=== PATIENT | female | born 2005 | race Caucasian/White ===

== ENCOUNTER 2023-11-21 20:13 | Emergency (ER) | payer BC, SELFPAY ==
--- NOTE | ~2023-11-21 | CT_ITS ---
EXAMINATION: CT abdomen pelvis w con DATE: 11/21/2023 21:34 INDICATION: bloody diarrhea TECHNIQUE: Computed tomography (CT) of the abdomen and pelvis was performed with 100 mL Omnipaque-350 intravenous contrast. Automated exposure control and iterative reconstruction technique were employe d. The dose-length product was 266.02 mGy-cm. COMPARISON: None. FINDINGS: Lower thorax: Unremarkable Liver: Normal. Biliary/Gallbladder: Gallbladder is normal. No bile duct dilation. Pancreas: No mass or duct dilation. Spleen: Normal. Adrenals:No mass. Kidneys: No suspicious mass, obstructing stone, or hydronephrosis. GI tract: No small or large bowel dilation. Mild colonic wall edema involving the transverse, descend ing, and sigmoid colon. Normal appendix. Mesentery/Peritoneum: No ascites, mass, or free air. Retroperitoneum: No mass. Pelvis: Pelvic organs are within normal limits. Soft Tissues: Soft tissues and body wall unremarkable. Bones: No acute osseous finding. IMPRESSION: Mild transverse, descending, and sigmoid wall edema as can be seen with infectious or inflammatory co litis. If there is a history of vasculitis consider ischemic colitis. Reviewed, dictated and finalized at location K. [employer] IMPRESSION: Mild transverse, descending, and sigmoid wall edema as can be seen with infecti ous or inflammatory colitis. If there is a history of vasculitis consider ische tommy colitis.
[2023-11-21 20:14] VITALS: BP 146/79; PULSE 85; RESP 18; TEMP 36.7; O2SAT 100
[2023-11-21 20:44] VITALS: BP 121/65; PULSE 74
--- NOTE | 2023-11-21 20:46 | ED.GIBLEED ---
HPI - GI Bleed General Chief complaint: GI Bleed Stated complaint: rectum bleeding Time Seen by Provider: 11/21/23 20:29 Source: patient Mode of arrival: ambulatory Limitations: no limitations History of Present Illness HPI Narrative: This is a 18 year old female that presents to the ER for rectal bleeding. Reports associated diarrhea. Reports bright red blood. Ongoing since yesterday. Denies fever or vomiting. Related Data Allergies Allergy/AdvReac Type Severity Reaction Status Date / Time No Known Allergies Allergy Verified 11/21/23 20:41 Review of Systems Review of Systems: CONSTITUTIONAL: Denies fever GASTROINTESTINAL: Reports abdominal pain, and diarrhea. Denies vomiting All systems reviewed & are unremarkable except as noted in HPI and below PMFSH Past Medical History Medical History (Updated 11/21/23 @ 21:52 by Sury Davenport PA-C) No active medical problems Social History Social History (Updated 11/21/23 @ 20:53 by Sury Davenport PA-C) Smoking status: Current every day smoker Tobacco type: e-cigarettes/vaping Exam Narrative: GENERAL: Well-appearing, well-nourished, and in no acute distress. HEAD: Normocephalic, atraumatic. EYES: EOMI. CHEST: Clear to auscultation. No respiratory distress. No wheezes rales or rhonchi HEART: Regular rate and rhythm. No murmur heard. Normal peripheral pulses. ABDOMEN: Soft, nontender, nondistended, normal active bowel sounds. EXTREMITIES: Normal range of motion. No edema. SKIN: Warm, dry, no rash. NEURO: No focal deficits. Alert and oriented x3. PSYCH: Normal mood and affect RECTAL: No obvious hemorrhoids or fissures. No active bleeding. Hemoccult positive Course Course Emergency Course: Patient updated on workup and agrees with plan of care Vital Signs Vital signs: Vital Signs Temperature 98.1 F 11/21/23 20:14 Pulse Rate 85 11/21/23 20:14 Respiratory Rate 18 11/21/23 20:14 Blood Pressure 146/79 H 11/21/23 20:14 Pulse Oximetry 100 11/21/23 20:14 Oxygen Delivery Room Air 11/21/23 20:14 Temperature 98.1 F 11/21/23 20:14 Pulse Rate 80 11/21/23 21:06 Respiratory Rate 18 11/21/23 20:14 Blood Pressure 126/71 11/21/23 21:06 Pulse Oximetry 100 11/21/23 20:14 Oxygen Delivery Room Air 11/21/23 20:14 MDM - GI Bleed MDM Narrative Medical decision making narrative: Patient presents to the emergency department for bloody diarrhea. She is afebrile and nontoxic appearing. Her vitals are stable. Hemoglobin is normal. CBC does show mild leukocytosis to 10.9. Metabolic panel without concerning findings. test is negative. No obvious hemorrhoids or fissures on exam. She was Hemoccult positive. CT abdomen and pelvis shows findings consistent with colitis. No concern for ischemic colitis at this time as her exam is benign. She will be started on oral antibiotics and was instructed to follow up with primary provider. She was given warnings to return to the ER Differential Diagnosis Differential diagnosis: Likely hemorrhoids, infectious diarrhea, Lower gastrointestinal hemorrhage, hematochezia and anal fissure Lab Data Attestation: I reviewed the patient's lab results. 11/21/23 20:53 11/21/23 20:53 Labs: Lab Results 11/21/23 Range/Units 20:53 WBC 10.9 H (4.5-10.0) K/mm3 RBC 4.81 (4.2-5.4) M/mm3 Hgb 13.8 (12.0-15.0) g/dL Hct 41.4 (37.0-47.0) % MCV 86.1 (80-100) fl MCH 28.7 (26-34) pg MCHC 33.3 (32-36) g/dl RDW 11.5 (11.5-14.5) % Plt Count 250 (150-375) k/mm3 MPV 10.9 H (7.4-10.4) fl Immature Gran % (Auto) 0.3 (0-0.5) % Neut % (Auto) 69.1 (45.5-73.1) % Lymph % (Auto) 24.2 (18.3-44.2) % Luce % (Auto) 4.8 (2.6-8.5) % Eos % (Auto) 1.0 (0-4.4) % Baso % (Auto) 0.6 (0.2-1.2) % Lymph # (Auto) 2.63 (0.9-3.2) K/mm3 Luce # (Auto) 0.5 (0.1-0.6) K/mm3 Eos # (Auto) 0.1 (0-0.3) K/mm3 Baso # (Auto) 0.1 (0.0-0.1)
[2023-11-21 20:58] LABS: Basophils Absolute Auto 0.1 K/mm3 (0.0-0.1); Basophils Percent Auto 0.6 % (0.2-1.2); Eosinophils Absolute Auto 0.1 K/mm3 (0-0.3); Hematocrit 41.4 % (37.0-47.0); Hemoglobin 13.8 g/dL (12.0-15.0); Immature Granulocyte Absolute 0.03 K/mm3 (0.00-0.031); Immature Granulocyte Percent A 0.3 % (0-0.5); Lymphocytes Absolute Auto 2.63 K/mm3 (0.9-3.2); Lymphocytes Percent Auto 24.2 % (18.3-44.2); Mean Corpuscular HGB Conc 33.3 g/dl (32-36); Mean Corpuscular Hemoglobin 28.7 pg (26-34); Mean Corpuscular Volume 86.1 fl (80-100); Mean Platelet Volume 10.9 fl (7.4-10.4); Monocytes Absolute Auto 0.5 K/mm3 (0.1-0.6); Monocytes Percent Auto 4.8 % (2.6-8.5); Neutrophils Absolute Auto 7.5 K/mm3 (1.3-6.7); Neutrophils Percent Auto 69.1 % (45.5-73.1); Platelet Count Result 250 k/mm3 (150-375); Red Blood Count 4.81 M/mm3 (4.2-5.4); Red Cell Distribution Width 11.5 % (11.5-14.5); White Blood Count 10.9 K/mm3 (4.5-10.0)
[2023-11-21 21:06] VITALS: BP 126/71; BP 129/79; PULSE 68; PULSE 80
[2023-11-21 21:10] LABS: Alanine Aminotransferase 24 U/L (6-35); Alkaline Phosphatase 52 U/L (38-126); Anion Gap 10 mmol/L (8-16); Aspartate Amino Transferase 19 U/L (14-36); Bilirubin,Total 0.8 mg/dL (0.2-1.3); Blood Urea Nitrogen 10 mg/dL (7-17); Calcium 9.3 mg/dL (8.4-10.2); Carbon Dioxide 27 mmol/L (22-30); Chloride 103 mmol/L (98-107); Estimated CRCL calculation 81 ml/min; Estimated Glomerular Filt Rate > 60; Glucose 90 mg/dL (65-110); INR 1.1; Partial Thromboplastin Time 29.2 SECONDS (22.3-36.8); Potassium 3.3 mmol/L (3.4-5.0); Prothrombin Time 14.1 Seconds (11.1-14.7); Sodium 140 mmol/L (137-145)
--- NOTE | 2023-11-21 21:27 | PC.NURSE ---
Patient taken to CT via w/c at this time.
[2023-11-21] MEDS: POTASSIUM CHLORIDE 20 MEQ ER TABLET 40 MEQ PO (21:57)
[2023-11-21 22:02] VITALS: BP 128/86; PULSE 91; RESP 17; O2SAT 98
== END 2023-11-21 22:05 | disposition home or self-care (01) ==
PROVIDERS: Emergency Provider Physician Assistant
DX: K52.9 Noninfective gastroenteritis and colitis, unspecified (principal); E87.6 Hypokalemia; F17.290 Nicotine dependence, other tobacco product, uncomplicated
CPT/HCPCS: 36415; 74177; 80053; 81025; 83735; 85025; 85610; 85730; 86850; 86900; 86901; 99284; A9270; Q9967

== ENCOUNTER 2023-12-18 23:04 | Emergency (ER) | payer BC, SELFPAY ==
[2023-12-18 23:05] VITALS: BP 142/90; PULSE 72; RESP 18; TEMP 37; O2SAT 100
[2023-12-18 23:32] LABS: Basophils Absolute Auto 0.1 K/mm3 (0.0-0.1); Basophils Percent Auto 0.8 % (0.2-1.2); Eosinophils Absolute Auto 0.1 K/mm3 (0-0.3); Eosinophils Percent Auto 1.8 % (0-4.4); Hematocrit 43.5 % (37.0-47.0); Hemoglobin 14.4 g/dL (12.0-15.0); Immature Granulocyte Absolute 0.01 K/mm3 (0.00-0.031); Immature Granulocyte Percent A 0.1 % (0-0.5); Lymphocytes Percent Auto 35.2 % (18.3-44.2); Mean Corpuscular HGB Conc 33.1 g/dl (32-36); Mean Corpuscular Hemoglobin 28.3 pg (26-34); Mean Corpuscular Volume 85.6 fl (80-100); Mean Platelet Volume 11.4 fl (7.4-10.4); Monocytes Absolute Auto 0.6 K/mm3 (0.1-0.6); Neutrophils Absolute Auto 3.8 K/mm3 (1.3-6.7); Neutrophils Percent Auto 54.1 % (45.5-73.1); Platelet Count Result 191 k/mm3 (150-375); Red Blood Count 5.08 M/mm3 (4.2-5.4); Red Cell Distribution Width 11.8 % (11.5-14.5); White Blood Count 7.1 K/mm3 (4.5-10.0)
[2023-12-18 23:41] LABS: Prothrombin Time 13.9 Seconds (11.1-14.7)
[2023-12-18 23:42] LABS: Partial Thromboplastin Time 28.8 SECONDS (22.3-36.8)
[2023-12-18 23:43] LABS: Alanine Aminotransferase 16 U/L (6-35); Alkaline Phosphatase 59 U/L (38-126); Anion Gap 8 mmol/L (8-16); Aspartate Amino Transferase 22 U/L (14-36); Bilirubin,Total 0.7 mg/dL (0.2-1.3); Blood Urea Nitrogen 10 mg/dL (7-17); Calcium 9.7 mg/dL (8.4-10.2); Carbon Dioxide 29 mmol/L (22-30); Chloride 102 mmol/L (98-107); Estimated CRCL calculation 91 ml/min; Estimated Glomerular Filt Rate > 60; Glucose 106 mg/dL (65-110); Potassium 3.3 mmol/L (3.4-5.0); Sodium 139 mmol/L (137-145)
[2023-12-19 00:14] LABS: Appearance Urine Clear (Clear); Bilirubin Urine Negative (Negative); Blood Urine Negative (Negative); Color Urine Yellow (Yellow); Glucose Urine UA Negative (Negative); Ketones Urine Negative (Negative); Leukocyte Esterase Ur Negative LEU/UL (Negative); Nitrate Urine Negative (Negative); Protein Urine Negative (Negative); Specific Grav Ur 1.008 (1.001-1.035); Urobilinogen Urine 0.2 mg/dL (<2.0); pH Urine 6.5 (5.0-9.0)
[2023-12-19 00:18] LABS: Add Urine Microscopic? NO
[2023-12-19 01:41] VITALS: BP 129/77; PULSE 81; RESP 15; O2SAT 100
[2023-12-19] MEDS: POTASSIUM CHLORIDE 20 MEQ PACKET (FOR LIQUID) PO (02:19)
[2023-12-19 02:39] LABS: Magnesium 2.2 mg/dL (1.6-2.3)
--- NOTE | 2023-12-19 03:15 | ED.GIBLEED ---
HPI - GI Bleed General Chief complaint: GI Bleed Stated complaint: rectal bleeding Time Seen by Provider: 12/19/23 01:52 Source: patient Limitations: no limitations History of Present Illness HPI Narrative: Patient is a 18-year-old female presents to the emergency department complaining rectal bleeding. Patient states she noticed the rectal bleeding tonight around 7 or 8:00 p.m. with associated mild right lower quadrant abdominal achiness, has not tried anything for the pain, no saline was constant, minimal in intensity, history of this 3 weeks ago was told that she had colitis and was given antibiotics and did not follow-up with anybody. Patient has not noticed any making the pain better or worse. Patient states that the rectal bleeding is only present when she wipes, denies any significant blood in her stool. Patient admits to a couple episodes of diarrhea today approximate 2-3. Patient's her last menstrual period was 2 weeks ago. Patient denies fever, vomiting, sick contacts, recent travel, chest pain, difficulty breathing, use of blood thinners, history of inflammatory bowel disease in herself or her family, use of NSAIDs, constipation, straining with bowel movements, dysuria, hematuria, urinary frequency, urinary urgency, recent injuries, recent illness. Patient notes that when she had this a couple weeks ago got better with antibiotics. Patient denies any history of colonoscopies. Related Data Allergies Allergy/AdvReac Type Severity Reaction Status Date / Time No Known Allergies Allergy Verified 11/21/23 20:41 Review of Systems Review of Systems: A 10 system review of systems was completed on the patient and is negative except for what is stated in the HPI. Nursing and ancillary documentation was reviewed. [facility] Past Medical History Medical History (Updated 12/19/23 @ 03:18 by Dimitri Castañeda DO) No active medical problems Social History Social History (Updated 11/21/23 @ 20:53 by Sury Davenport PA-C) Smoking status: Current every day smoker Tobacco type: e-cigarettes/vaping Comments At time of signature, I have reviewed and agree with nursing past medical, surgical, social and family history unless otherwise noted. Please see the nursing chart for further information. There is no relevant family history pertinent to the presenting complaint. Exam Narrative: CONST: No acute distress. Well nourished. HENMT: Head is normocephalic and atraumatic. Moist mucous membranes. No posterior oropharynx erythema. EYES: No conjunctival icterus, injection, or pallor. PERRL. NECK: No meningeal signs. RESP: Able to speak in full sentences. Normal respiratory effort. CTAB. CARDIO: Regular rate. Regular rhythm. 2+ DP and radial pulses bilaterally. GI: Nondistended. No tenderness to palpation. Soft. No palpable masses or hernias. : No CVA tenderness to palpation. No anal fissures or external hemorrhoids. Digital rectal examination reveals light brown colored stool, normal anal tone, no palpable internal hemorrhoids or masses, stool Hemoccult is negative. SKIN: No rashes or lesions noted on exposed skin. NEURO: Oriented x3. Moves all extremities. EXTREM/MSK/BACK: No pedal edema. PSYCH: Normal affect. Course Vital Signs Vital signs: Vital Signs Temperature 98.6 F 12/18/23 23:05 Pulse Rate 72 12/18/23 23:05 Respiratory Rate 18 12/18/23 23:05 Blood Pressure 142/90 H 12/18/23 23:05 Pulse Oximetry 100 12/18/23 23:05 Oxygen Delivery Room Air 12/18/23 23:05 Temperature 98.6 F 12/18/23 23:05 Pulse Rate 81 12/19/23 01:41 Respiratory Rate 15 12/19/23 01:41 Blood Pressure 129/77 12/19/23 01:41 Pulse Oximetry 100 12/19/23 01:41 Oxygen Delivery Room Air 12/18/23 23:05 Procedures Stool Hemoccult Stool hemoccult #1: Stool Hemoccult Date: 12/19/23 Stool Hemoccult Time: 03:18 Procedural Steps Taken: stool placed in appropriate test area, giles
[2023-12-19 03:28] VITALS: BP 110/71; PULSE 79; RESP 15; O2SAT 99
[2023-12-19] MEDS: HYDROcodone/acetaminophen (*CRX) 5-325 MG TABLET 1 TAB PO (03:28)
[2023-12-19] MEDS: metroNIDAZOLE 500 MG TABLET PO (03:28)
[2023-12-19] MEDS: CIPROFLOXACIN 500 MG TAB PO (03:28)
== END 2023-12-19 03:32 | disposition home or self-care (01) ==
PROVIDERS: Emergency Provider Student in an Organized Health Care Education/Training Program
DX: K62.5 Hemorrhage of anus and rectum (principal); E87.6 Hypokalemia; F17.290 Nicotine dependence, other tobacco product, uncomplicated
CPT/HCPCS: 36415; 80053; 81003; 83735; 85025; 85610; 85730; 86850; 86900; 86901; 99283; A9270